=== PATIENT | female | born 1985 | race Caucasian/White ===

== ENCOUNTER 2020-01-13 22:58 | Emergency (ER) | payer OTHER, BC ==
[2020-01-13 23:05] VITALS: BP 132/77; PULSE 99; TEMP 98; BMI 29.2
--- NOTE | 2020-01-14 01:13 | PDOC ---
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 She states this started at 1330 today when she got into her friend's car. The sensations have been continuous since then and have been migrating around her body, but predominantly on the left side. They are not made worse or better by anything, and their intensity is not changing. She denies trauma, ingesting anything new, trouble breathing, rash, swelling, excess ingestion of supplements, or anxiety. 01/14/20 01:16 Past History - Travel History Traveled outside of the country in the last 30 days: No Close contact w/someone who was outside of country & ill: No - Medical History Allergies/Adverse Reactions: Allergies Allergy/AdvReac Type Severity Reaction Status Date / Time bruce Allergy Uncoded 01/13/20 23:05 Asthma: Yes (last need for inhaler was March 2019) COPD: No - Surgical History Abdominal Surgery: No Appendectomy: No Cardiac Surgery: No Cholecystectomy: No Gastric Stapling: No GI Surgery: No Lung Surgery: No Neurologic Surgery: No Orthopedic Surgery: No Other Surgical History: 01/14/20 01:26 Breast implants - Reproductive History LMP comment: last one was 12/30/2019 LMP Normal: Yes Is Patient Now?: No Uterine Fibroids: Yes (s/p myomectomy) - Psycho-Social/Smoking History Smoking Status: No Smoking History: Never smoked - Substance Abuse Hx (Audit-C & DAST Scrn) How often the patient has a drink containing alcohol: Never Score: In Men: 4 or > Positive; In Women: 3 or > Positive: 0 Screen Result (Pos requires Nsg. Audit-10AR): Negative Review of Systems - Review of Systems Able to Perform ROS?: Yes Is the patient limited Croatian proficient: No Constitutional: No: Chills, Diaphoresis, Fever HEENTM: No: Eye Pain, Blurred Vision, Recent change in vision, Double Vision, Nose Congestion, Tinnitus Respiratory: No: Cough, Shortness of Breath, SOB with Exertion Cardiac (ROS): No: Chest Pain, Edema, Irregular Heart Rate, Lightheadedness ABD/GI: No: Constipated, Diarrhea : No: Hematuria, Urgency Integumentary: No: Erythema, Rash Neurological: Yes: Numbness, Paresthesia, Tingling. No: Headache, Seizure, Tremors, Weakness, Unsteady Gait, Ataxia, Dizziness, Other Psychiatric: No: Mood Swings, Change in Appetite Hematologic/Lymphatic: No: Easy Bruising *Physical Exam - Vital Signs Last Vital Signs Temp Pulse Resp BP Pulse Ox 98 F 99 H 18 132/77 99 01/13/20 23:02 01/13/20 23:02 01/13/20 23:02 01/13/20 23:02 01/13/20 23:02 - Physical Exam General Appearance: Yes: Nourished, Appropriately Dressed, Apparent Distress HEENT: positive: Normal ENT Inspection, Normal Voice. negative: Rhinorrhea, Sinus Tenderness Neck: positive: Trachea midline, Supple. negative: Tender Respiratory/Chest: positive: Lungs Clear, Normal Breath Sounds. negative: Chest Tender, Respiratory Distress, Accessory Muscle Use Cardiovascular: positive: Regular Rhythm, Regular Rate, S1, S2 Gastrointestinal/Abdominal: positive: Normal Bowel Sounds, Soft Musculoskeletal: positive: Normal Inspection. negative: CVA Tenderness Extremity: positive: Normal Capillary Refill, Normal Inspection Integumentary: positive: Normal Color, Dry, Warm. 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 negative: Abnormal Cranial NS, Facial Droop, Sensory Deficit, Confused, Diso riented, Depressed Affect Deep Tendon Reflexes: Ankle (L): 1+, Ankle (R): 1+, Knee (L): 1+, Knee (R): 1+ Discharge - Discharge Information Problems reviewed: Yes Clinical Impression/Diagnosis: Paresthesia Condition: Stable Disposition: HOME - Admission No - Follow up/Referral Referrals: Kristen Petit [Primary Care Provider] - Paddy Oneal MD [Staff Physician] - - Patient Discharge Instructions Patient Printed Discharge Instructions: DI for Numbness/tingling Additional Instructions: You came to the emergency department with whole-body tingling since this afternoon. We examined you thoroughly and determined that you are safe to go home. Please follow up with Dr. Oneal (neurology) tomorrow or within 24 hours of leaving the emergency department. Come back to the emergency department if any of your symptoms become more severe, or you notice any other neurologic or severe changes. - Post Discharge Activity
--- NOTE | 2020-01-14 01:43 | PDOC ---
Documentation entered by Annmarie Barrera SCRIBE, acting as scribe for Leela Jarrett MD. Leela Jarrett MD: This documentation has been prepared by the scribe, Annmarie Mehta SCRIBE, under my direction and personally reviewed by me in its entirety. I confirm that the documentation accurately reflects all work, treatment, procedures, and medical decision making performed by me. Attending Attestation - Resident Resident Name: Carlito Michael - ED Attending Attestation I have performed the following: I have examined & evaluated the patient, The case was reviewed & discussed with the resident, I agree w/resident's findings & plan, Exceptions are as noted - HPI HPI: 01/14/20 01:33 The patient is a 34 year old female with a significant PMH of asthma and seasonal allergies who presents to the ED for evaluation of continuous full body tingling for the past 10 hours, starting around 2:30 this afternoon. Patient notes that it began when she got into her friend's car and has since been raditing around her body, however it is consistently and mostly on the left side. Patient denies any alleviating or aggravating factors. The patient denies trauma. Denies chest pain, shortness of breath, cough, headache and dizziness. Denies fever, chills, nausea, vomiting, diarrhea and constipation. Denies dysuria, frequency, urgency and hematuria. Denies hx of anxiety. 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 related to supplements taking at home. No motor deficits and not midline tenderness to suggest spinal cord compression. Plan: -d/c with return precautions, recommend PMD f/u This clinical encounter is taking place during a federal and state health care emergency attributable to the novel Shepherd Virus pandemic. The [place] of the Department of Health and Human Services has declared, pursuant to the Public Health Service Act 319F-3 (42 U.S[place]C. 247d-6d), that a covered persons activities related to medical countermeasures against COVID-19 will be immune from liability under Federal and State law. Discharge - Discharge Information Problems reviewed: Yes Clinical Impression/Diagnosis: Paresthesia Condition: Stable Disposition: HOME - Follow up/Referral Referrals: Paddy Oneal MD [Staff Physician] - Kristen Petit [Primary Care Provider] - - Patient Discharge Instructions Patient Printed Discharge Instructions: DI for Numbness/tingling Additional Instructions: You came to the emergency department with whole-body tingling since this afternoon. We examined you thoroughly and determined that you are safe to go home. Please follow up with Dr. Oneal (neurology) tomorrow or within 24 hours of leaving the emergency department. Come back to the emergency department if any of your symptoms become more severe, or you notice any other neurologic or severe changes. - Post Discharge Activity
== END 2020-01-14 01:47 | disposition home or self-care (01) ==
LOC: JER 22:58
DX: R20.2 Paresthesia of skin (principal)
CPT/HCPCS: 99282-25

== ENCOUNTER 2020-12-17 19:18 | Emergency (ER) | payer OTHER, BC ==
[2020-12-17] MEDS ORDERED: SODIUM CHLORIDE 0.9% 500 ML INFUS.BAG IV ONE (20:12)
[2020-12-17] MEDS ORDERED: DEXAMETHASONE SOD PHOSPHATE 4 MG/1 ML VIAL IVPUSH ONE (20:12)
[2020-12-17 20:20] VITALS: BMI 29.8
[2020-12-17] MEDS ORDERED: ACETAMINOPHEN 1000 MG/100 ML VIAL (NON FORMULARY) IVPB ONE (20:24)
[2020-12-17] MEDS ORDERED: ONDANSETRON 4 MG/2 ML VIAL IVPUSH ONE (20:24)
[2020-12-17] MEDS ORDERED: DEXAMETHASONE SOD PHOSPHATE 10 MG/1 ML VIAL ONE (20:28)
[2020-12-17 21:15] LABS: HEMATOCRIT 38.6 % (32.4-45.2); HEMOGLOBIN 13.3 GM/dL (10.7-15.3); LYMPH % 17.6 % (8-40); MCH 30.5 pg (25.7-33.7); MCHC 34.5 g/dl (32.0-36.0); MEAN CELL VOLUME 88.5 fl (80-96); MEAN PLT VOLUME 8.8 fl (7.5-11.1); MONO % 4.4 % (3.8-10.2); PLATELET COUNT 166 10^3/uL (134-434); RBC 4.36 M/mm3 (3.60-5.2); RDW 12.3 % (11.6-15.6); WHITE BLOOD COUNT 7.3 K/mm3 (4.0-10.0)
[2020-12-17 21:21] LABS: INR 1.09 (0.83-1.09); PROTHROMBIN TIME (PATIENT) 13.4 SEC (9.7-13.0)
[2020-12-17 21:22] LABS: VENOUS BASE EXCESS 2.3 mmol/L (-2-2); VENOUS PH 7.406 (7.310-7.410)
[2020-12-17 21:24] LABS: ACTIVATED PTT 29.3 SECONDS (25.2-36.5)
[2020-12-17] MEDS ORDERED: ACETAMINOPHEN INJECTION 100 ML IVPB ONE (21:32)
[2020-12-17 21:34] LABS: CHLORIDE 106 mmol/L (98-107); SODIUM 138 mmol/L (136-145)
[2020-12-17 21:37] LABS: ALBUMIN 3.2 g/dl (3.4-5.0); ANION GAP 7 MMOL/L (8-16); BLOOD UREA NITROGEN 5.6 mg/dL (7-18); CO2 26 mmol/L (21-32); GLUCOSE,RANDOM 105 mg/dL (74-106)
[2020-12-17 21:40] LABS: BILIRUBIN,DIRECT 0.1 mg/dL (0.0-0.2); CREATININE 0.6 mg/dL (0.55-1.3); SGOT/AST 111 U/L (15-37); SGPT/ALT 127 U/L (13-61)
[2020-12-17 21:42] LABS: BILIRUBIN,TOTAL 0.3 mg/dL (0.2-1)
[2020-12-17 21:43] LABS: ALK PHOS 80 U/L (45-117)
[2020-12-17 21:52] LABS: LDH 380 U/L (84-246)
[2020-12-17 22:14] LABS: URINE APPEARANCE CLEAR; URINE BILIRUBIN NEGATIVE (NEGATIVE); URINE COLOR YELLOW; URINE GLUCOSE (UA) NEGATIVE (NEGATIVE); URINE KETONE NEGATIVE (NEGATIVE); URINE LEUK ESTERASE NEGATIVE (NEGATIVE); URINE NITRITE NEGATIVE (NEGATIVE); URINE PROTEIN NEGATIVE (NEGATIVE); URINE UROBILINOGEN 0.2 mg/dL (0.2-1.0)
[2020-12-17 23:23] VITALS: BP 128/68; PULSE 86; TEMP 98
== END 2020-12-17 23:56 | disposition home or self-care (01) ==
LOC: JER 19:18
PROC: 3E0333Z Introduction of Anti-inflammatory into Peripheral Vein, Percutaneous Approach (ICD-10-PCS; principal; 2020-12-17)
DX: U07.1 COVID-19 (principal); Z11.52 Encounter for screening for COVID-19
CPT/HCPCS: 36415; 71045-TC-FY; 80053; 81003; 82248; 82550; 82728; 82803; 83615; 84484; 84703; 85025; 85379; 85610; 85730; 86140; 87040; 87086; 87804; 93005; 93010; 99285-25; C9803; J0131; U0003; U0005

== ENCOUNTER 2020-12-19 01:10 | Inpatient (IN) | payer BC, OTHER ==
[2020-12-19] MEDS ORDERED: ONDANSETRON 4 MG/2 ML VIAL ONE (06:49)
[2020-12-19] MEDS ORDERED: ACETAMINOPHEN INJECTION 100 ML IVPB ONE (06:49)
[2020-12-19] MEDS ORDERED: ONDANSETRON 4 MG/2 ML VIAL IVPB ONE (06:59)
[2020-12-19] MEDS ORDERED: ACETAMINOPHEN 1000 MG/100 ML VIAL (NON FORMULARY) IVPB ONE (06:59)
[2020-12-19 07:53] LABS: INR 1.2 (0.83-1.09); PROTHROMBIN TIME (PATIENT) 14.5 SEC (9.7-13.0)
[2020-12-19 07:58] LABS: BASO % 0.1 % (0-2.0); HEMATOCRIT 36.3 % (32.4-45.2); HEMOGLOBIN 12.7 GM/dL (10.7-15.3); LYMPH % 24.1 % (8-40); MCH 30.9 pg (25.7-33.7); MEAN CELL VOLUME 88.2 fl (80-96); MEAN PLT VOLUME 8.9 fl (7.5-11.1); MONO % 5.5 % (3.8-10.2); NEUT % 70.3 % (42.8-82.8); PLATELET COUNT 200 10^3/uL (134-434); RBC 4.12 M/mm3 (3.60-5.2)
[2020-12-19 08:00] LABS: CALCIUM 8.2 mg/dL (8.5-10.1)
[2020-12-19 08:01] LABS: ALBUMIN 2.9 g/dl (3.4-5.0)
[2020-12-19 08:04] LABS: CREATININE 0.7 mg/dL (0.55-1.3)
[2020-12-19 08:05] LABS: BILIRUBIN,TOTAL 0.4 mg/dL (0.2-1); TOT PROT 6.5 g/dl (6.4-8.2)
[2020-12-19] MEDS ORDERED: CASIRIVIMAB (REGN10933) 600 MG, IMDEVIMAB (REGN10987) 600 MG in SODIUM CHLORIDE 100 ML IVPB ONE (08:19)
[2020-12-19] MEDS: ONDANSETRON 4 MG/2 ML VIAL IVPUSH PRN ×3 (12:46→23:44)
[2020-12-19 13:19] VITALS: BMI 27.3
[2020-12-19] MEDS: ACETAMINOPHEN 1000 MG/100 ML VIAL (NON FORMULARY) IVPB PRN ×2 (13:48→20:01)
[2020-12-19] MEDS: ASCORBIC ACID 500 MG TABLET (FP) PO SCH (21:04)
[2020-12-19] MEDS: ZINC SULFATE 220 MG CAPSULE (FP) PO SCH (21:05)
[2020-12-20] MEDS: ONDANSETRON 4 MG/2 ML VIAL IVPUSH PRN (06:12)
[2020-12-20] MEDS: ACETAMINOPHEN 1000 MG/100 ML VIAL (NON FORMULARY) IVPB PRN (06:32)
[2020-12-20 08:23] LABS: BASO % 0.1 % (0-2.0); EOS % 0.1 % (0-4.5); HEMATOCRIT 36.3 % (32.4-45.2); HEMOGLOBIN 12.7 GM/dL (10.7-15.3); LYMPH % 18.7 % (8-40); MCH 31.5 pg (25.7-33.7); MCHC 35.1 g/dl (32.0-36.0); MEAN CELL VOLUME 89.6 fl (80-96); MEAN PLT VOLUME 8.9 fl (7.5-11.1); NEUT % 75.1 % (42.8-82.8); PLATELET COUNT 206 10^3/uL (134-434); RBC 4.05 M/mm3 (3.60-5.2); RDW 12.1 % (11.6-15.6); WHITE BLOOD COUNT 9.2 K/mm3 (4.0-10.0)
[2020-12-20 08:28] LABS: ALBUMIN 2.7 g/dl (3.4-5.0); CALCIUM 8.1 mg/dL (8.5-10.1)
[2020-12-20 08:31] LABS: CREATININE 0.6 mg/dL (0.55-1.3)
[2020-12-20 08:33] LABS: BILIRUBIN,TOTAL 0.5 mg/dL (0.2-1); TOT PROT 6.4 g/dl (6.4-8.2)
[2020-12-20] MEDS: ENOXAPARIN NA (PORCINE) 40 MG/0.4 ML DISP.SYRIN SQ SCH (09:32)
[2020-12-20] MEDS: ZINC SULFATE 220 MG CAPSULE (FP) PO SCH ×2 (09:33→21:02)
[2020-12-20] MEDS: ASCORBIC ACID 500 MG TABLET (FP) PO SCH ×2 (09:33→21:02)
[2020-12-20] MEDS: DEXAMETHASONE SOD PHOSPHATE 4 MG/1 ML VIAL IVPUSH SCH (12:26)
[2020-12-20] MEDS: FAMOTIDINE 20 MG TABLET PO SCH ×2 (12:26→21:02)
[2020-12-20] MEDS ORDERED: REMDESIVIR 200 MG in SODIUM CHLORIDE 250 ML IVPB ONE (12:30)
[2020-12-20] MEDS: ACETAMINOPHEN 325 MG TABLET (FP) PO PRN ×2 (16:13→21:38)
[2020-12-21] MEDS: ONDANSETRON 4 MG/2 ML VIAL IVPUSH PRN ×2 (01:01→08:47)
[2020-12-21] MEDS: DEXAMETHASONE SOD PHOSPHATE 4 MG/1 ML VIAL IVPUSH SCH (09:04)
[2020-12-21] MEDS: ENOXAPARIN NA (PORCINE) 40 MG/0.4 ML DISP.SYRIN SQ SCH (09:05)
[2020-12-21] MEDS: ZINC SULFATE 220 MG CAPSULE (FP) PO SCH ×2 (09:05→21:14)
[2020-12-21] MEDS: ASCORBIC ACID 500 MG TABLET (FP) PO SCH ×2 (09:05→21:14)
[2020-12-21] MEDS: FAMOTIDINE 20 MG TABLET PO SCH ×2 (09:05→21:14)
[2020-12-21] MEDS: ACETAMINOPHEN 325 MG TABLET (FP) PO PRN ×2 (09:06→22:47)
[2020-12-21 10:48] LABS: ALBUMIN 2.6 g/dl (3.4-5.0); CALCIUM 8.3 mg/dL (8.5-10.1); MAGNESIUM 2.4 mg/dL (1.8-2.4)
[2020-12-21 10:50] LABS: BASO % 0.1 % (0-2.0); EOS % 0.4 % (0-4.5); HEMATOCRIT 38.2 % (32.4-45.2); HEMOGLOBIN 13.1 GM/dL (10.7-15.3); LYMPH % 14.3 % (8-40); MCH 30.4 pg (25.7-33.7); MCHC 34.2 g/dl (32.0-36.0); MEAN CELL VOLUME 88.9 fl (80-96); MEAN PLT VOLUME 8.5 fl (7.5-11.1); MONO % 4.9 % (3.8-10.2); NEUT % 80.3 % (42.8-82.8); PLATELET COUNT 262 10^3/uL (134-434); RBC 4.29 M/mm3 (3.60-5.2); RDW 12.2 % (11.6-15.6); WHITE BLOOD COUNT 12.5 K/mm3 (4.0-10.0)
[2020-12-21 10:52] LABS: BILIRUBIN,TOTAL 0.5 mg/dL (0.2-1); CREATININE 0.7 mg/dL (0.55-1.3)
[2020-12-21 10:54] LABS: TOT PROT 6.7 g/dl (6.4-8.2)
[2020-12-21] MEDS: REMDESIVIR 100 MG in SODIUM CHLORIDE 250 ML IVPB SCH (12:14)
[2020-12-21] MEDS: POLYETHYLENE GLYCOL (HEALTHYLAX) 3350 17 GM PACKET PO SCH (20:33)
[2020-12-21] MEDS ORDERED: PT OWN MED DRAWER 7, Y5N ONE (21:05)
[2020-12-21] MEDS: DOCUSATE SODIUM 100 MG CAPSULE (FP) PO SCH (21:15)
[2020-12-21] MEDS: BUDESONIDE/FORMETEROL FUMARATE 160/4.5 mcg INHALER IH SCH (21:15)
[2020-12-21] MEDS: guaiFENesin/D-M SUGAR-FREE/ACLHOL-FREE 118 ML BOTTLE PO PRN (22:49)
[2020-12-22] MEDS: ONDANSETRON 4 MG/2 ML VIAL IVPUSH PRN (08:36)
[2020-12-22] MEDS: DEXAMETHASONE SOD PHOSPHATE 4 MG/1 ML VIAL IVPUSH SCH (09:22)
[2020-12-22] MEDS: ENOXAPARIN NA (PORCINE) 40 MG/0.4 ML DISP.SYRIN SQ SCH (09:23)
[2020-12-22] MEDS: DOCUSATE SODIUM 100 MG CAPSULE (FP) PO SCH ×3 (09:23→21:20)
[2020-12-22] MEDS: ASCORBIC ACID 500 MG TABLET (FP) PO SCH ×2 (09:23→21:12)
[2020-12-22] MEDS: ZINC SULFATE 220 MG CAPSULE (FP) PO SCH ×2 (09:23→21:12)
[2020-12-22] MEDS: POLYETHYLENE GLYCOL (HEALTHYLAX) 3350 17 GM PACKET PO SCH (09:24)
[2020-12-22] MEDS: FAMOTIDINE 20 MG TABLET PO SCH ×2 (09:24→21:12)
[2020-12-22] MEDS: BUDESONIDE/FORMETEROL FUMARATE 160/4.5 mcg INHALER IH SCH ×2 (09:30→21:19)
[2020-12-22 09:36] LABS: BASO % 0.1 % (0-2.0); EOS % 1.1 % (0-4.5); HEMATOCRIT 36.7 % (32.4-45.2); HEMOGLOBIN 12.5 GM/dL (10.7-15.3); LYMPH % 15.5 % (8-40); MCH 30.3 pg (25.7-33.7); MCHC 34.1 g/dl (32.0-36.0); MEAN PLT VOLUME 8.3 fl (7.5-11.1); NEUT % 77.3 % (42.8-82.8); PLATELET COUNT 273 10^3/uL (134-434); RBC 4.13 M/mm3 (3.60-5.2); WHITE BLOOD COUNT 11.3 K/mm3 (4.0-10.0)
[2020-12-22 10:03] LABS: ALBUMIN 2.5 g/dl (3.4-5.0); CALCIUM 8.1 mg/dL (8.5-10.1)
[2020-12-22 10:05] LABS: CREATININE 0.6 mg/dL (0.55-1.3); MAGNESIUM 2.3 mg/dL (1.8-2.4)
[2020-12-22 10:06] LABS: TOT PROT 6.4 g/dl (6.4-8.2)
[2020-12-22 10:10] LABS: BILIRUBIN,TOTAL 0.4 mg/dL (0.2-1)
[2020-12-22 10:16] LABS: ALBUMIN 2.5 g/dl (3.4-5.0)
[2020-12-22 10:18] LABS: BILIRUBIN,DIRECT 0.2 mg/dL (0.0-0.2)
[2020-12-22 10:19] LABS: BILIRUBIN,TOTAL 0.4 mg/dL (0.2-1)
[2020-12-22 10:20] LABS: TOT PROT 6.1 g/dl (6.4-8.2)
[2020-12-22] MEDS: REMDESIVIR 100 MG in SODIUM CHLORIDE 250 ML IVPB SCH (11:46)
[2020-12-22] MEDS ORDERED: BUDESONIDE 0.25 MG/2ML INH SUSP VIAL NEB SCH ×2 (20:00)
[2020-12-22] MEDS: ACETAMINOPHEN 325 MG TABLET (FP) PO PRN (21:12)
[2020-12-23] MEDS: ONDANSETRON 4 MG/2 ML VIAL IVPUSH PRN ×3 (00:35→13:07)
[2020-12-23 08:55] LABS: BASO % 0.2 % (0-2.0); EOS % 0.9 % (0-4.5); HEMATOCRIT 36.9 % (32.4-45.2); HEMOGLOBIN 12.7 GM/dL (10.7-15.3); LYMPH % 12.7 % (8-40); MCH 30.7 pg (25.7-33.7); MCHC 34.3 g/dl (32.0-36.0); MEAN CELL VOLUME 89.6 fl (80-96); MEAN PLT VOLUME 8.2 fl (7.5-11.1); MONO % 7.5 % (3.8-10.2); NEUT % 78.7 % (42.8-82.8); PLATELET COUNT 288 10^3/uL (134-434); RBC 4.12 M/mm3 (3.60-5.2); RDW 12.1 % (11.6-15.6); WHITE BLOOD COUNT 11.5 K/mm3 (4.0-10.0)
[2020-12-23] MEDS ORDERED: TOCILIZUMAB (ACTEMRA) 200 MG/10 ML VIAL IVPB ONE (09:11)
[2020-12-23 09:18] LABS: CALCIUM 8.1 mg/dL (8.5-10.1)
[2020-12-23 09:19] LABS: ALBUMIN 2.5 g/dl (3.4-5.0); BLOOD UREA NITROGEN 9.9 mg/dL (7-18); MAGNESIUM 2.1 mg/dL (1.8-2.4)
[2020-12-23 09:22] LABS: CREATININE 0.6 mg/dL (0.55-1.3)
[2020-12-23 09:23] LABS: TOT PROT 6.3 g/dl (6.4-8.2)
[2020-12-23] MEDS ORDERED: SODIUM CHLORIDE IVPB ONE ×2 (09:30→10:45)
[2020-12-23] MEDS ORDERED: TOCILIZUMAB IVPB ONE ×2 (09:30→10:45)
[2020-12-23] MEDS ORDERED: TOCILIZUMAB IV ONE ×2 (10:30)
[2020-12-23] MEDS: ENOXAPARIN NA (PORCINE) 40 MG/0.4 ML DISP.SYRIN SQ SCH (10:33)
[2020-12-23] MEDS: FAMOTIDINE 20 MG TABLET PO SCH ×2 (10:34→22:02)
[2020-12-23] MEDS: DEXAMETHASONE SOD PHOSPHATE 4 MG/1 ML VIAL IVPUSH SCH (10:34)
[2020-12-23] MEDS: ASCORBIC ACID 500 MG TABLET (FP) PO SCH (10:34)
[2020-12-23] MEDS: ZINC SULFATE 220 MG CAPSULE (FP) PO SCH (10:34)
[2020-12-23] MEDS: DOCUSATE SODIUM 100 MG CAPSULE (FP) PO SCH ×3 (10:38→22:02)
[2020-12-23] MEDS: POLYETHYLENE GLYCOL (HEALTHYLAX) 3350 17 GM PACKET PO SCH (10:38)
[2020-12-23] MEDS: BUDESONIDE/FORMETEROL FUMARATE 160/4.5 mcg INHALER IH SCH ×3 (10:38→22:03)
[2020-12-23] MEDS: REMDESIVIR 100 MG in SODIUM CHLORIDE 250 ML IVPB SCH (13:07)
[2020-12-23] MEDS: ACETAMINOPHEN 325 MG TABLET (FP) PO PRN (17:09)
[2020-12-24] MEDS: FAMOTIDINE 20 MG TABLET PO SCH ×2 (09:34→22:45)
[2020-12-24] MEDS: DEXAMETHASONE SOD PHOSPHATE 4 MG/1 ML VIAL IVPUSH SCH (09:34)
[2020-12-24] MEDS: BUDESONIDE/FORMETEROL FUMARATE 160/4.5 mcg INHALER IH SCH (09:35)
[2020-12-24] MEDS: ENOXAPARIN NA (PORCINE) 40 MG/0.4 ML DISP.SYRIN SQ SCH (09:35)
[2020-12-24] MEDS: DOCUSATE SODIUM 100 MG CAPSULE (FP) PO SCH ×2 (09:35→22:45)
[2020-12-24] MEDS: POLYETHYLENE GLYCOL (HEALTHYLAX) 3350 17 GM PACKET PO SCH (09:35)
[2020-12-24 09:39] LABS: BASO % 0.2 % (0-2.0); EOS % 1.6 % (0-4.5); HEMATOCRIT 36.8 % (32.4-45.2); HEMOGLOBIN 12.9 GM/dL (10.7-15.3); LYMPH % 18.7 % (8-40); MCH 30.9 pg (25.7-33.7); MEAN CELL VOLUME 88.3 fl (80-96); MONO % 6.8 % (3.8-10.2); NEUT % 72.7 % (42.8-82.8); PLATELET COUNT 320 10^3/uL (134-434); RBC 4.17 M/mm3 (3.60-5.2); RDW 11.9 % (11.6-15.6); WHITE BLOOD COUNT 7.9 K/mm3 (4.0-10.0)
[2020-12-24 10:04] LABS: CALCIUM 8.2 mg/dL (8.5-10.1)
[2020-12-24 10:05] LABS: ALBUMIN 2.3 g/dl (3.4-5.0); BLOOD UREA NITROGEN 9.8 mg/dL (7-18); MAGNESIUM 2.3 mg/dL (1.8-2.4)
[2020-12-24 10:06] LABS: CREATININE 0.6 mg/dL (0.55-1.3)
[2020-12-24 10:08] LABS: BILIRUBIN,TOTAL 0.6 mg/dL (0.2-1); TOT PROT 6.1 g/dl (6.4-8.2)
[2020-12-24] MEDS: ALBUTEROL SO4 0.083% IH SOL 2.5 MG/3 ML VIAL.NEB. NEB SCH ×3 (11:50→19:02)
[2020-12-24] MEDS: REMDESIVIR 100 MG in SODIUM CHLORIDE 250 ML IVPB SCH (12:46)
[2020-12-24] MEDS: ONDANSETRON 4 MG/2 ML VIAL IVPUSH PRN (12:46)
[2020-12-24] MEDS: ENOXAPARIN NA (PORCINE) 80 MG/0.8 ML DISP.SYRIN SQ SCH ×2 (15:57→22:48)
[2020-12-24] MEDS: ACETAMINOPHEN 325 MG TABLET (FP) PO PRN (17:37)
[2020-12-24] MEDS: BUDESONIDE 0.5 MG/2 ML INH SUSP VIAL NEB SCH (19:02)
[2020-12-25] MEDS ORDERED: PT OWN MED DRAWER 7, Y5N ONE ×3 (01:33→23:52)
[2020-12-25] MEDS: guaiFENesin/D-M SUGAR-FREE/ACLHOL-FREE 118 ML BOTTLE PO PRN ×3 (01:37→23:54)
[2020-12-25] MEDS: BUDESONIDE 0.5 MG/2 ML INH SUSP VIAL NEB SCH ×2 (08:35→20:30)
[2020-12-25] MEDS: ALBUTEROL SO4 0.083% IH SOL 2.5 MG/3 ML VIAL.NEB. NEB SCH ×4 (08:35→21:27)
[2020-12-25 09:33] LABS: BASO % 0.1 % (0-2.0); EOS % 1.9 % (0-4.5); HEMATOCRIT 37.6 % (32.4-45.2); HEMOGLOBIN 13.3 GM/dL (10.7-15.3); LYMPH % 20.8 % (8-40); MCH 31.3 pg (25.7-33.7); MCHC 35.3 g/dl (32.0-36.0); MEAN CELL VOLUME 88.7 fl (80-96); MONO % 6.7 % (3.8-10.2); NEUT % 70.5 % (42.8-82.8); PLATELET COUNT 372 10^3/uL (134-434); RBC 4.24 M/mm3 (3.60-5.2); WHITE BLOOD COUNT 10.8 K/mm3 (4.0-10.0)
[2020-12-25] MEDS: DEXAMETHASONE SOD PHOSPHATE 4 MG/1 ML VIAL IVPUSH SCH (10:03)
[2020-12-25] MEDS: ENOXAPARIN NA (PORCINE) 80 MG/0.8 ML DISP.SYRIN SQ SCH ×2 (10:03→22:15)
[2020-12-25] MEDS: FAMOTIDINE 20 MG TABLET PO SCH ×2 (10:04→22:15)
[2020-12-25] MEDS: DOCUSATE SODIUM 100 MG CAPSULE (FP) PO SCH ×2 (10:12→22:15)
[2020-12-25] MEDS: POLYETHYLENE GLYCOL (HEALTHYLAX) 3350 17 GM PACKET PO SCH (10:12)
[2020-12-25 10:23] LABS: CALCIUM 8.5 mg/dL (8.5-10.1)
[2020-12-25 10:24] LABS: ALBUMIN 2.5 g/dl (3.4-5.0); BLOOD UREA NITROGEN 10.3 mg/dL (7-18); MAGNESIUM 2.2 mg/dL (1.8-2.4)
[2020-12-25 10:26] LABS: CREATININE 0.6 mg/dL (0.55-1.3)
[2020-12-25 10:28] LABS: BILIRUBIN,TOTAL 0.6 mg/dL (0.2-1); TOT PROT 6.3 g/dl (6.4-8.2)
[2020-12-25] MEDS: SODIUM CHLORIDE NASAL SPRAY 44 ML BOTTLE NS PRN (10:30)
[2020-12-25] MEDS: ONDANSETRON 4 MG/2 ML VIAL IVPUSH PRN (14:42)
[2020-12-26] MEDS: BUDESONIDE 0.5 MG/2 ML INH SUSP VIAL NEB SCH ×2 (08:00→20:28)
[2020-12-26] MEDS: ALBUTEROL SO4 0.083% IH SOL 2.5 MG/3 ML VIAL.NEB. NEB SCH ×2 (08:00→12:00)
[2020-12-26] MEDS: DEXAMETHASONE SOD PHOSPHATE 4 MG/1 ML VIAL IVPUSH SCH (09:17)
[2020-12-26] MEDS: FAMOTIDINE 20 MG TABLET PO SCH ×2 (09:18→21:01)
[2020-12-26] MEDS: DOCUSATE SODIUM 100 MG CAPSULE (FP) PO SCH ×2 (09:18→21:01)
[2020-12-26] MEDS: ENOXAPARIN NA (PORCINE) 80 MG/0.8 ML DISP.SYRIN SQ SCH ×2 (09:18→21:01)
[2020-12-26] MEDS: POLYETHYLENE GLYCOL (HEALTHYLAX) 3350 17 GM PACKET PO SCH (09:28)
[2020-12-26] MEDS ORDERED: PT OWN MED DRAWER 7, Y5N ONE (11:25)
[2020-12-26 11:30] LABS: BASO % 0.2 % (0-2.0); HEMOGLOBIN 13.2 GM/dL (10.7-15.3); LYMPH % 19.6 % (8-40); MCH 30.6 pg (25.7-33.7); MCHC 34.6 g/dl (32.0-36.0); MEAN CELL VOLUME 88.5 fl (80-96); MEAN PLT VOLUME 7.5 fl (7.5-11.1); MONO % 7.7 % (3.8-10.2); NEUT % 70.5 % (42.8-82.8); PLATELET COUNT 354 10^3/uL (134-434); RBC 4.29 M/mm3 (3.60-5.2); RDW 12.2 % (11.6-15.6); WHITE BLOOD COUNT 9.6 K/mm3 (4.0-10.0)
[2020-12-26 11:54] LABS: CALCIUM 8.3 mg/dL (8.5-10.1)
[2020-12-26 11:55] LABS: ALBUMIN 2.5 g/dl (3.4-5.0); BLOOD UREA NITROGEN 10.8 mg/dL (7-18)
[2020-12-26 11:56] LABS: MAGNESIUM 1.9 mg/dL (1.8-2.4)
[2020-12-26 11:58] LABS: CREATININE 0.7 mg/dL (0.55-1.3)
[2020-12-26 11:59] LABS: BILIRUBIN,TOTAL 0.5 mg/dL (0.2-1)
[2020-12-26 12:00] LABS: TOT PROT 5.9 g/dl (6.4-8.2)
[2020-12-26] MEDS: guaiFENesin/D-M SUGAR-FREE/ACLHOL-FREE 118 ML BOTTLE PO PRN (15:07)
[2020-12-27] MEDS ORDERED: PT OWN MED DRAWER 7, Y5N ONE ×2 (00:40→19:39)
[2020-12-27] MEDS: guaiFENesin/D-M SUGAR-FREE/ACLHOL-FREE 118 ML BOTTLE PO PRN ×2 (00:43→09:31)
[2020-12-27] MEDS: BUDESONIDE 0.5 MG/2 ML INH SUSP VIAL NEB SCH ×2 (08:39→19:55)
[2020-12-27] MEDS: ENOXAPARIN NA (PORCINE) 80 MG/0.8 ML DISP.SYRIN SQ SCH ×2 (09:28→21:29)
[2020-12-27] MEDS: DOCUSATE SODIUM 100 MG CAPSULE (FP) PO SCH ×2 (09:29→21:27)
[2020-12-27] MEDS: POLYETHYLENE GLYCOL (HEALTHYLAX) 3350 17 GM PACKET PO SCH (09:29)
[2020-12-27] MEDS: FAMOTIDINE 20 MG TABLET PO SCH ×2 (09:29→21:27)
[2020-12-27] MEDS: DEXAMETHASONE SOD PHOSPHATE 4 MG/1 ML VIAL IVPUSH SCH (10:41)
[2020-12-27 10:50] LABS: BASO % 0.3 % (0-2.0); EOS % 1.6 % (0-4.5); HEMATOCRIT 38.7 % (32.4-45.2); HEMOGLOBIN 13.6 GM/dL (10.7-15.3); LYMPH % 24.4 % (8-40); MCH 31.1 pg (25.7-33.7); MCHC 35.1 g/dl (32.0-36.0); MEAN CELL VOLUME 88.5 fl (80-96); MEAN PLT VOLUME 7.9 fl (7.5-11.1); MONO % 8.3 % (3.8-10.2); NEUT % 65.4 % (42.8-82.8); PLATELET COUNT 388 10^3/uL (134-434); RBC 4.37 M/mm3 (3.60-5.2); RDW 12.1 % (11.6-15.6)
[2020-12-27 11:21] LABS: ALBUMIN 2.7 g/dl (3.4-5.0); BLOOD UREA NITROGEN 13.4 mg/dL (7-18)
[2020-12-27 11:22] LABS: BILIRUBIN,TOTAL 0.5 mg/dL (0.2-1); TOT PROT 6.2 g/dl (6.4-8.2)
[2020-12-27 11:23] LABS: CALCIUM 8.5 mg/dL (8.5-10.1)
[2020-12-27 11:24] LABS: CREATININE 0.7 mg/dL (0.55-1.3)
[2020-12-27] MEDS: guaiFENesin/CODEINE 10 ML UNIT-DOSE CUPS PO SCH (21:27)
[2020-12-28] MEDS: BUDESONIDE 0.5 MG/2 ML INH SUSP VIAL NEB SCH ×2 (07:20→20:00)
[2020-12-28 08:55] LABS: HEMOGLOBIN 14.3 GM/dL (10.7-15.3); MEAN CELL VOLUME 88.5 fl (80-96); MEAN PLT VOLUME 7.9 fl (7.5-11.1); PLATELET COUNT 391 10^3/uL (134-434); RBC 4.63 M/mm3 (3.60-5.2); RDW 12.1 % (11.6-15.6); WHITE BLOOD COUNT 13.2 K/mm3 (4.0-10.0)
[2020-12-28 09:59] LABS: ANISOCYTOSIS 0; HELMET CELLS 0; HOWELL-JOLLY BODIES 0; MACROCYTOSIS 0; OVALOCYTE 0; PLATELET ESTIMATE NORMAL; ROULEAU 0; SICKELED CELLS 0; TARGET CELLS 0; TEAR DROP CELLS 0; TOXIC GRANULATION 0
[2020-12-28] MEDS: ENOXAPARIN NA (PORCINE) 80 MG/0.8 ML DISP.SYRIN SQ SCH ×2 (10:40→21:11)
[2020-12-28] MEDS: DOCUSATE SODIUM 100 MG CAPSULE (FP) PO SCH ×2 (10:40→21:11)
[2020-12-28] MEDS: FAMOTIDINE 20 MG TABLET PO SCH ×2 (10:40→21:11)
[2020-12-28] MEDS: DEXAMETHASONE SOD PHOSPHATE 4 MG/1 ML VIAL IVPUSH SCH (10:41)
[2020-12-28] MEDS: POLYETHYLENE GLYCOL (HEALTHYLAX) 3350 17 GM PACKET PO SCH (10:42)
[2020-12-28] MEDS: guaiFENesin/D-METHORPHAN HB 10 ML UNIT-DOSE CUPS PO PRN (11:08)
[2020-12-28 11:27] LABS: CALCIUM 8.9 mg/dL (8.5-10.1)
[2020-12-28 11:28] LABS: BLOOD UREA NITROGEN 11.8 mg/dL (7-18); MAGNESIUM 2.4 mg/dL (1.8-2.4)
[2020-12-28 11:31] LABS: CREATININE 0.7 mg/dL (0.55-1.3)
[2020-12-28 11:32] LABS: TOT PROT 6.7 g/dl (6.4-8.2)
[2020-12-28 11:34] LABS: BILIRUBIN,TOTAL 0.6 mg/dL (0.2-1)
[2020-12-28] MEDS: guaiFENesin/CODEINE 10 ML UNIT-DOSE CUPS PO SCH (21:11)
[2020-12-29] MEDS: BUDESONIDE 0.5 MG/2 ML INH SUSP VIAL NEB SCH ×2 (07:23→20:36)
[2020-12-29 09:10] LABS: BASO % 0.4 % (0-2.0); EOS % 1.2 % (0-4.5); HEMATOCRIT 40.7 % (32.4-45.2); HEMOGLOBIN 14.2 GM/dL (10.7-15.3); LYMPH % 21.8 % (8-40); MCH 30.7 pg (25.7-33.7); MCHC 34.9 g/dl (32.0-36.0); MEAN PLT VOLUME 7.8 fl (7.5-11.1); MONO % 7.1 % (3.8-10.2); NEUT % 69.5 % (42.8-82.8); PLATELET COUNT 362 10^3/uL (134-434); RBC 4.62 M/mm3 (3.60-5.2); RDW 12.3 % (11.6-15.6); WHITE BLOOD COUNT 13.7 K/mm3 (4.0-10.0)
[2020-12-29 09:23] LABS: CHLORIDE 98 mmol/L (98-107); SODIUM 135 mmol/L (136-145)
[2020-12-29 09:28] LABS: CALCIUM 8.8 mg/dL (8.5-10.1)
[2020-12-29 09:29] LABS: ANION GAP 6 MMOL/L (8-16); BLOOD UREA NITROGEN 14.8 mg/dL (7-18); CO2 31 mmol/L (21-32); GLUCOSE,RANDOM 84 mg/dL (74-106); MAGNESIUM 2.4 mg/dL (1.8-2.4)
[2020-12-29 09:31] LABS: CREATININE 0.7 mg/dL (0.55-1.3); SGOT/AST 55 U/L (15-37); SGPT/ALT 175 U/L (13-61)
[2020-12-29 09:33] LABS: BILIRUBIN,TOTAL 0.7 mg/dL (0.2-1); LDH 281 U/L (84-246); TOT PROT 6.9 g/dl (6.4-8.2)
[2020-12-29 09:34] LABS: ALK PHOS 98 U/L (45-117)
[2020-12-29] MEDS: ENOXAPARIN NA (PORCINE) 80 MG/0.8 ML DISP.SYRIN SQ SCH ×2 (10:28→22:12)
[2020-12-29] MEDS: DOCUSATE SODIUM 100 MG CAPSULE (FP) PO SCH ×2 (10:29→22:12)
[2020-12-29] MEDS: guaiFENesin/D-METHORPHAN HB 10 ML UNIT-DOSE CUPS PO PRN (10:29)
[2020-12-29] MEDS: SODIUM CHLORIDE NASAL SPRAY 44 ML BOTTLE NS PRN (10:29)
[2020-12-29] MEDS: FAMOTIDINE 20 MG TABLET PO SCH ×2 (10:29→22:12)
[2020-12-29] MEDS: POLYETHYLENE GLYCOL (HEALTHYLAX) 3350 17 GM PACKET PO SCH (10:29)
[2020-12-29] MEDS: DEXAMETHASONE SOD PHOSPHATE 4 MG/1 ML VIAL IVPUSH SCH (10:29)
[2020-12-29] MEDS: ACETYLCYSTEINE 20% 200MG/ML 4 ML VIAL *FOR ORAL / INH USE ONLY NEB SCH ×3 (11:13→20:48)
[2020-12-29] MEDS ORDERED: ACETYLCYSTEINE 20% 200MG/ML 30 ML VIAL *FOR ORAL / INH USE ONLY NEB SCH (12:00)
[2020-12-29] MEDS: ALBUTEROL SO4 0.083% IH SOL 2.5 MG/3 ML VIAL.NEB. NEB SCH ×2 (15:30→20:49)
[2020-12-29] MEDS: guaiFENesin/CODEINE 10 ML UNIT-DOSE CUPS PO SCH (22:12)
[2020-12-30] MEDS: BUDESONIDE 0.5 MG/2 ML INH SUSP VIAL NEB SCH ×2 (07:40→19:30)
[2020-12-30] MEDS: ACETYLCYSTEINE 20% 200MG/ML 4 ML VIAL *FOR ORAL / INH USE ONLY NEB SCH ×4 (07:40→19:30)
[2020-12-30] MEDS: ALBUTEROL SO4 0.083% IH SOL 2.5 MG/3 ML VIAL.NEB. NEB SCH ×4 (07:40→19:30)
[2020-12-30 08:54] LABS: BASO % 0.3 % (0-2.0); EOS % 1.5 % (0-4.5); HEMATOCRIT 39.8 % (32.4-45.2); HEMOGLOBIN 13.6 GM/dL (10.7-15.3); LYMPH % 26.8 % (8-40); MCH 30.3 pg (25.7-33.7); MCHC 34.3 g/dl (32.0-36.0); MEAN CELL VOLUME 88.6 fl (80-96); MEAN PLT VOLUME 7.2 fl (7.5-11.1); MONO % 9.8 % (3.8-10.2); NEUT % 61.6 % (42.8-82.8); PLATELET COUNT 319 10^3/uL (134-434); RBC 4.49 M/mm3 (3.60-5.2); RDW 12.3 % (11.6-15.6); WHITE BLOOD COUNT 13.5 K/mm3 (4.0-10.0)
[2020-12-30 09:16] LABS: CHLORIDE 102 mmol/L (98-107); SODIUM 138 mmol/L (136-145)
[2020-12-30 09:18] LABS: ANION GAP 7 MMOL/L (8-16); BLOOD UREA NITROGEN 15.3 mg/dL (7-18); CALCIUM 8.7 mg/dL (8.5-10.1); CO2 30 mmol/L (21-32)
[2020-12-30 09:19] LABS: GLUCOSE,RANDOM 81 mg/dL (74-106)
[2020-12-30 09:21] LABS: SGPT/ALT 145 U/L (13-61)
[2020-12-30 09:22] LABS: CREATININE 0.7 mg/dL (0.55-1.3); LDH 217 U/L (84-246); MAGNESIUM 2.4 mg/dL (1.8-2.4); SGOT/AST 34 U/L (15-37)
[2020-12-30 09:23] LABS: BILIRUBIN,TOTAL 0.5 mg/dL (0.2-1); TOT PROT 6.6 g/dl (6.4-8.2)
[2020-12-30 09:24] LABS: ALK PHOS 94 U/L (45-117)
[2020-12-30] MEDS: ENOXAPARIN NA (PORCINE) 80 MG/0.8 ML DISP.SYRIN SQ SCH ×2 (09:39→21:58)
[2020-12-30] MEDS: DEXAMETHASONE SOD PHOSPHATE 4 MG/1 ML VIAL IVPUSH SCH (09:40)
[2020-12-30] MEDS: DOCUSATE SODIUM 100 MG CAPSULE (FP) PO SCH ×2 (09:41→21:58)
[2020-12-30] MEDS: POLYETHYLENE GLYCOL (HEALTHYLAX) 3350 17 GM PACKET PO SCH (09:41)
[2020-12-30] MEDS: FAMOTIDINE 20 MG TABLET PO SCH ×2 (09:41→21:58)
[2020-12-30] MEDS: SODIUM CHLORIDE NASAL SPRAY 44 ML BOTTLE NS PRN (09:50)
[2020-12-30] MEDS: guaiFENesin/D-METHORPHAN HB 10 ML UNIT-DOSE CUPS PO PRN (09:50)
[2020-12-30] MEDS: guaiFENesin/CODEINE 10 ML UNIT-DOSE CUPS PO SCH (21:58)
[2020-12-31] MEDS: ACETYLCYSTEINE 20% 200MG/ML 4 ML VIAL *FOR ORAL / INH USE ONLY NEB SCH ×4 (07:35→20:10)
[2020-12-31] MEDS: ALBUTEROL SO4 0.083% IH SOL 2.5 MG/3 ML VIAL.NEB. NEB SCH ×4 (07:35→20:10)
[2020-12-31] MEDS: BUDESONIDE 0.5 MG/2 ML INH SUSP VIAL NEB SCH ×2 (07:35→20:00)
[2020-12-31] MEDS: POLYETHYLENE GLYCOL (HEALTHYLAX) 3350 17 GM PACKET PO SCH (09:21)
[2020-12-31] MEDS: ENOXAPARIN NA (PORCINE) 80 MG/0.8 ML DISP.SYRIN SQ SCH ×2 (09:21→21:46)
[2020-12-31] MEDS: DOCUSATE SODIUM 100 MG CAPSULE (FP) PO SCH ×2 (09:21→21:46)
[2020-12-31] MEDS: guaiFENesin/D-METHORPHAN HB 10 ML UNIT-DOSE CUPS PO PRN (09:21)
[2020-12-31] MEDS: FAMOTIDINE 20 MG TABLET PO SCH ×2 (09:21→21:46)
[2020-12-31] MEDS: DEXAMETHASONE SOD PHOSPHATE 4 MG/1 ML VIAL IVPUSH SCH (09:22)
[2020-12-31] MEDS: SODIUM CHLORIDE NASAL SPRAY 44 ML BOTTLE NS PRN (09:22)
[2020-12-31 09:42] LABS: BASO % 0.4 % (0-2.0); EOS % 1.8 % (0-4.5); HEMATOCRIT 38.9 % (32.4-45.2); HEMOGLOBIN 13.3 GM/dL (10.7-15.3); LYMPH % 22.6 % (8-40); MCH 30.5 pg (25.7-33.7); MCHC 34.1 g/dl (32.0-36.0); MEAN CELL VOLUME 89.5 fl (80-96); MEAN PLT VOLUME 7.7 fl (7.5-11.1); MONO % 12.3 % (3.8-10.2); NEUT % 62.9 % (42.8-82.8); PLATELET COUNT 329 10^3/uL (134-434); RBC 4.35 M/mm3 (3.60-5.2); RDW 12.3 % (11.6-15.6); WHITE BLOOD COUNT 11.6 K/mm3 (4.0-10.0)
[2020-12-31 09:59] LABS: CHLORIDE 102 mmol/L (98-107); SODIUM 137 mmol/L (136-145)
[2020-12-31 10:06] LABS: CALCIUM 8.5 mg/dL (8.5-10.1)
[2020-12-31 10:07] LABS: ANION GAP 8 MMOL/L (8-16); BLOOD UREA NITROGEN 13.2 mg/dL (7-18); CO2 27 mmol/L (21-32); GLUCOSE,RANDOM 96 mg/dL (74-106); MAGNESIUM 2.3 mg/dL (1.8-2.4)
[2020-12-31 10:09] LABS: SGPT/ALT 149 U/L (13-61)
[2020-12-31 10:10] LABS: CREATININE 0.7 mg/dL (0.55-1.3); SGOT/AST 38 U/L (15-37)
[2020-12-31 10:11] LABS: BILIRUBIN,TOTAL 0.5 mg/dL (0.2-1); TOT PROT 6.5 g/dl (6.4-8.2)
[2020-12-31 10:12] LABS: ALK PHOS 89 U/L (45-117)
[2020-12-31] MEDS: guaiFENesin/CODEINE 10 ML UNIT-DOSE CUPS PO SCH (21:46)
[2020-12-31] MEDS ORDERED: APIXABAN 5 MG TABLET PO SCH (22:00)
[2021-01-01] MEDS: BUDESONIDE 0.5 MG/2 ML INH SUSP VIAL NEB SCH ×2 (08:11→20:54)
[2021-01-01] MEDS: ACETYLCYSTEINE 20% 200MG/ML 4 ML VIAL *FOR ORAL / INH USE ONLY NEB SCH ×4 (08:13→20:57)
[2021-01-01] MEDS: ALBUTEROL SO4 0.083% IH SOL 2.5 MG/3 ML VIAL.NEB. NEB SCH ×4 (08:14→20:58)
[2021-01-01 09:26] LABS: BASO % 0.7 % (0-2.0); EOS % 1.6 % (0-4.5); HEMATOCRIT 41.3 % (32.4-45.2); HEMOGLOBIN 14.2 GM/dL (10.7-15.3); LYMPH % 30.9 % (8-40); MCH 31.1 pg (25.7-33.7); MCHC 34.4 g/dl (32.0-36.0); MEAN CELL VOLUME 90.3 fl (80-96); MEAN PLT VOLUME 8.2 fl (7.5-11.1); MONO % 9.7 % (3.8-10.2); NEUT % 57.1 % (42.8-82.8); PLATELET COUNT 334 10^3/uL (134-434); RBC 4.57 M/mm3 (3.60-5.2); RDW 12.8 % (11.6-15.6); WHITE BLOOD COUNT 14.3 K/mm3 (4.0-10.0)
[2021-01-01 09:47] LABS: CHLORIDE 102 mmol/L (98-107); SODIUM 137 mmol/L (136-145)
[2021-01-01 09:49] LABS: ALBUMIN 3.4 g/dl (3.4-5.0); ANION GAP 7 MMOL/L (8-16); BLOOD UREA NITROGEN 16.1 mg/dL (7-18); CO2 28 mmol/L (21-32); GLUCOSE,RANDOM 66 mg/dL (74-106); MAGNESIUM 2.2 mg/dL (1.8-2.4)
[2021-01-01 09:53] LABS: CREATININE 0.8 mg/dL (0.55-1.3); SGOT/AST 39 U/L (15-37); SGPT/ALT 159 U/L (13-61)
[2021-01-01 09:54] LABS: BILIRUBIN,TOTAL 0.6 mg/dL (0.2-1)
[2021-01-01 09:55] LABS: ALK PHOS 97 U/L (45-117); TOT PROT 7.4 g/dl (6.4-8.2)
[2021-01-01] MEDS: FAMOTIDINE 20 MG TABLET PO SCH ×2 (11:42→21:08)
[2021-01-01] MEDS: DEXAMETHASONE SOD PHOSPHATE 4 MG/1 ML VIAL IVPUSH SCH (11:42)
[2021-01-01] MEDS: DOCUSATE SODIUM 100 MG CAPSULE (FP) PO SCH ×2 (11:42→21:08)
[2021-01-01] MEDS: APIXABAN 5 MG TABLET PO SCH ×2 (11:42→21:08)
[2021-01-01] MEDS: POLYETHYLENE GLYCOL (HEALTHYLAX) 3350 17 GM PACKET PO SCH (11:43)
[2021-01-01] MEDS: guaiFENesin/D-METHORPHAN HB 10 ML UNIT-DOSE CUPS PO PRN (11:55)
[2021-01-01] MEDS: guaiFENesin/CODEINE 10 ML UNIT-DOSE CUPS PO SCH (21:08)
[2021-01-02] MEDS: BUDESONIDE 0.5 MG/2 ML INH SUSP VIAL NEB SCH ×2 (08:10→19:49)
[2021-01-02] MEDS: ALBUTEROL SO4 0.083% IH SOL 2.5 MG/3 ML VIAL.NEB. NEB SCH ×4 (08:11→19:50)
[2021-01-02] MEDS: ACETYLCYSTEINE 20% 200MG/ML 4 ML VIAL *FOR ORAL / INH USE ONLY NEB SCH ×4 (08:11→19:49)
[2021-01-02] MEDS: POLYETHYLENE GLYCOL (HEALTHYLAX) 3350 17 GM PACKET PO SCH (09:41)
[2021-01-02] MEDS: DEXAMETHASONE SOD PHOSPHATE 4 MG/1 ML VIAL IVPUSH SCH (09:42)
[2021-01-02] MEDS: FAMOTIDINE 20 MG TABLET PO SCH ×2 (09:42→21:31)
[2021-01-02] MEDS: DOCUSATE SODIUM 100 MG CAPSULE (FP) PO SCH ×2 (09:42→21:31)
[2021-01-02] MEDS: APIXABAN 5 MG TABLET PO SCH ×2 (09:42→21:31)
[2021-01-02 09:48] LABS: BASO % 0.2 % (0-2.0); EOS % 2.1 % (0-4.5); HEMATOCRIT 40.6 % (32.4-45.2); HEMOGLOBIN 13.9 GM/dL (10.7-15.3); LYMPH % 24.3 % (8-40); MCH 30.7 pg (25.7-33.7); MCHC 34.2 g/dl (32.0-36.0); MEAN CELL VOLUME 89.8 fl (80-96); MEAN PLT VOLUME 8.1 fl (7.5-11.1); MONO % 9.6 % (3.8-10.2); NEUT % 63.8 % (42.8-82.8); PLATELET COUNT 290 10^3/uL (134-434); RBC 4.52 M/mm3 (3.60-5.2); RDW 12.6 % (11.6-15.6); WHITE BLOOD COUNT 12.8 K/mm3 (4.0-10.0)
[2021-01-02 10:05] LABS: CHLORIDE 103 mmol/L (98-107); SODIUM 138 mmol/L (136-145)
[2021-01-02 10:13] LABS: BLOOD UREA NITROGEN 16.8 mg/dL (7-18)
[2021-01-02 10:17] LABS: ALBUMIN 3.3 g/dl (3.4-5.0); ANION GAP 9 MMOL/L (8-16); CO2 27 mmol/L (21-32); GLUCOSE,RANDOM 75 mg/dL (74-106); MAGNESIUM 2.3 mg/dL (1.8-2.4)
[2021-01-02 10:20] LABS: CREATININE 0.7 mg/dL (0.55-1.3); SGPT/ALT 149 U/L (13-61)
[2021-01-02 10:21] LABS: BILIRUBIN,TOTAL 0.4 mg/dL (0.2-1); LDH 209 U/L (84-246)
[2021-01-02] MEDS: guaiFENesin/D-METHORPHAN HB 10 ML UNIT-DOSE CUPS PO PRN (10:21)
[2021-01-02 10:23] LABS: ALK PHOS 93 U/L (45-117); SGOT/AST 37 U/L (15-37)
[2021-01-02] MEDS: guaiFENesin/CODEINE 10 ML UNIT-DOSE CUPS PO SCH (21:31)
[2021-01-03] MEDS ORDERED: PT OWN MED DRAWER 7, Y5N ONE (06:27)
[2021-01-03] MEDS: DEXAMETHASONE 4 MG TABLET (FP) PO SCH (06:28)
[2021-01-03] MEDS: BUDESONIDE 0.5 MG/2 ML INH SUSP VIAL NEB SCH ×2 (07:20→20:01)
[2021-01-03] MEDS: ACETYLCYSTEINE 20% 200MG/ML 4 ML VIAL *FOR ORAL / INH USE ONLY NEB SCH ×4 (07:20→20:01)
[2021-01-03] MEDS: ALBUTEROL SO4 0.083% IH SOL 2.5 MG/3 ML VIAL.NEB. NEB SCH ×2 (07:37→11:20)
[2021-01-03] MEDS: FAMOTIDINE 20 MG TABLET PO SCH ×2 (10:42→21:39)
[2021-01-03] MEDS: POLYETHYLENE GLYCOL (HEALTHYLAX) 3350 17 GM PACKET PO SCH (10:42)
[2021-01-03] MEDS: DOCUSATE SODIUM 100 MG CAPSULE (FP) PO SCH ×2 (10:42→21:39)
[2021-01-03] MEDS: APIXABAN 5 MG TABLET PO SCH ×2 (10:42→21:39)
[2021-01-03] MEDS: guaiFENesin/D-METHORPHAN HB 10 ML UNIT-DOSE CUPS PO PRN (11:45)
[2021-01-04] MEDS ORDERED: PT OWN MED DRAWER 7, Y5N ONE (06:06)
[2021-01-04] MEDS: DEXAMETHASONE 4 MG TABLET (FP) PO SCH (06:26)
[2021-01-04] MEDS: BUDESONIDE 0.5 MG/2 ML INH SUSP VIAL NEB SCH ×2 (07:35→21:00)
[2021-01-04] MEDS: ACETYLCYSTEINE 20% 200MG/ML 4 ML VIAL *FOR ORAL / INH USE ONLY NEB SCH ×4 (07:35→21:05)
[2021-01-04] MEDS: guaiFENesin/D-METHORPHAN HB 10 ML UNIT-DOSE CUPS PO PRN (09:10)
[2021-01-04] MEDS: POLYETHYLENE GLYCOL (HEALTHYLAX) 3350 17 GM PACKET PO SCH (09:10)
[2021-01-04] MEDS: DOCUSATE SODIUM 100 MG CAPSULE (FP) PO SCH ×2 (09:10→21:36)
[2021-01-04] MEDS: FAMOTIDINE 20 MG TABLET PO SCH ×2 (09:10→21:36)
[2021-01-04] MEDS: APIXABAN 5 MG TABLET PO SCH ×2 (09:10→21:36)
[2021-01-04 10:15] LABS: BASO % 0.4 % (0-2.0); EOS % 2.6 % (0-4.5); HEMATOCRIT 38.9 % (32.4-45.2); HEMOGLOBIN 13.1 GM/dL (10.7-15.3); LYMPH % 19.7 % (8-40); MCH 30.3 pg (25.7-33.7); MCHC 33.8 g/dl (32.0-36.0); MEAN CELL VOLUME 89.7 fl (80-96); MEAN PLT VOLUME 8.2 fl (7.5-11.1); MONO % 4.6 % (3.8-10.2); NEUT % 72.7 % (42.8-82.8); PLATELET COUNT 250 10^3/uL (134-434); RBC 4.34 M/mm3 (3.60-5.2); RDW 12.7 % (11.6-15.6); WHITE BLOOD COUNT 11.3 K/mm3 (4.0-10.0)
[2021-01-04 10:29] LABS: CHLORIDE 105 mmol/L (98-107); SODIUM 137 mmol/L (136-145)
[2021-01-04 11:00] LABS: BLOOD UREA NITROGEN 16.4 mg/dL (7-18); CALCIUM 8.7 mg/dL (8.5-10.1); GLUCOSE,RANDOM 90 mg/dL (74-106)
[2021-01-04 11:01] LABS: ALBUMIN 3.1 g/dl (3.4-5.0); ANION GAP 8 MMOL/L (8-16); CO2 24 mmol/L (21-32); MAGNESIUM 2.2 mg/dL (1.8-2.4)
[2021-01-04 11:03] LABS: CREATININE 0.8 mg/dL (0.55-1.3); SGOT/AST 35 U/L (15-37); SGPT/ALT 139 U/L (13-61)
[2021-01-04 11:04] LABS: LDH 196 U/L (84-246)
[2021-01-04 11:05] LABS: BILIRUBIN,TOTAL 0.5 mg/dL (0.2-1); TOT PROT 6.7 g/dl (6.4-8.2)
[2021-01-04 11:08] LABS: ALK PHOS 84 U/L (45-117)
[2021-01-04] MEDS ORDERED: ALBUTEROL SO4 0.083% IH SOL 2.5 MG/3 ML VIAL.NEB. NEB PRN (16:48)
[2021-01-05] MEDS: ACETYLCYSTEINE 20% 200MG/ML 4 ML VIAL *FOR ORAL / INH USE ONLY NEB SCH ×3 (08:45→16:47)
[2021-01-05] MEDS: BUDESONIDE 0.5 MG/2 ML INH SUSP VIAL NEB SCH (08:45)
[2021-01-05] MEDS: APIXABAN 5 MG TABLET PO SCH (09:31)
[2021-01-05] MEDS: DOCUSATE SODIUM 100 MG CAPSULE (FP) PO SCH (09:31)
[2021-01-05] MEDS: FAMOTIDINE 20 MG TABLET PO SCH (09:31)
[2021-01-05] MEDS: POLYETHYLENE GLYCOL (HEALTHYLAX) 3350 17 GM PACKET PO SCH (09:32)
[2021-01-05] MEDS: guaiFENesin/D-METHORPHAN HB 10 ML UNIT-DOSE CUPS PO PRN (09:32)
[2021-01-05 10:01] LABS: BASO % 0.4 % (0-2.0); HEMATOCRIT 41.7 % (32.4-45.2); HEMOGLOBIN 14.1 GM/dL (10.7-15.3); LYMPH % 33.7 % (8-40); MCH 30.2 pg (25.7-33.7); MCHC 33.8 g/dl (32.0-36.0); MEAN CELL VOLUME 89.4 fl (80-96); MEAN PLT VOLUME 8.9 fl (7.5-11.1); MONO % 9.2 % (3.8-10.2); NEUT % 51.7 % (42.8-82.8); PLATELET COUNT 267 10^3/uL (134-434); RBC 4.67 M/mm3 (3.60-5.2); RDW 12.9 % (11.6-15.6); WHITE BLOOD COUNT 14.3 K/mm3 (4.0-10.0)
[2021-01-05 10:25] VITALS: PULSE 96
[2021-01-05 11:03] LABS: CHLORIDE 106 mmol/L (98-107); SODIUM 138 mmol/L (136-145)
[2021-01-05 11:06] LABS: ANION GAP 9 MMOL/L (8-16); CALCIUM 8.8 mg/dL (8.5-10.1); CO2 23 mmol/L (21-32)
[2021-01-05 11:07] LABS: ALBUMIN 3.3 g/dl (3.4-5.0); GLUCOSE,RANDOM 74 mg/dL (74-106); MAGNESIUM 2.2 mg/dL (1.8-2.4)
[2021-01-05 11:10] LABS: CREATININE 0.8 mg/dL (0.55-1.3); SGOT/AST 25 U/L (15-37); SGPT/ALT 122 U/L (13-61)
[2021-01-05 11:11] LABS: BILIRUBIN,TOTAL 0.6 mg/dL (0.2-1); TOT PROT 6.9 g/dl (6.4-8.2)
[2021-01-05 11:12] LABS: LDH 262 U/L (84-246)
[2021-01-05 11:13] LABS: ALK PHOS 93 U/L (45-117)
[2021-01-05 14:29] VITALS: BP 135/69; TEMP 98.4
== END 2021-01-05 17:47 | disposition home or self-care (01) | DRG 177 ==
LOC: JER 01:10 → JERBED 08:22 → J6S 12:24 → OBSVTOIN 12:29 → J6S 12-29 18:38
PROVIDERS: ADMIT Internal Medicine; ATTEND Internal Medicine
PROC: XW033E5 Introduction of Remdesivir Anti-infective into Peripheral Vein, Percutaneous Approach, New Technology Group 5 (ICD-10-PCS; principal; 2020-12-19)
PROC: XW033H5 Introduction of Tocilizumab into Peripheral Vein, Percutaneous Approach, New Technology Group 5 (ICD-10-PCS; 2020-12-19)
DX: U07.1 COVID-19 (principal); J12.82 Pneumonia due to coronavirus disease 2019; J96.01 Acute respiratory failure with hypoxia; J45.909 Unspecified asthma, uncomplicated; R74.01 Elevation of levels of liver transaminase levels; R74.8 Abnormal levels of other serum enzymes
CPT/HCPCS: 36415; 71045-TC-FY; 71250-TC; 80053; 80076; 82728; 83615; 83735; 85025; 85379; 85610; 86140; 93005; 93010; 94010; 94640; 94660; 94761; 97116-GP; 97161-GP; 99285-25; C9399; C9803; G0378; J0131; J3262; M0243; Q0243; U0003; U0005